=== PATIENT | female | born 1980 | race Caucasian/White ===

== ENCOUNTER 2024-06-16 15:30 | Outpatient (REF) | payer OTHER, SELFPAY ==
[2024-06-16 17:07] LABS: Alanine Aminotransferase 18 U/L (0-31); Albumin Level 4.1 g/dL (3.5-5.0); Alkaline Phosphatase 73 U/L (39-117); Anion Gap 8 (12-20); Aspartate Amino Transferase 19 U/L (5-31); Bilirubin Total 0.3 mg/dL (0.0-1.0); Blood Urea Nitrogen 18 mg/dL (9-16); Calcium 8.7 mg/dL (8.4-10.2); Carbon Dioxide 23 mmol/L (22-29); Chloride 108 mmol/L (96-108); Cholesterol 209 mg/dL (<200); Estimated Glomerular Filt Rate > 60; Glucose Random 94 mg/dL (60-115); HDL Cholesterol 46 mg/dL (>40); LDL Cholesterol Calculated 144 mg/dL (<100); Potassium 4.3 mmol/L (3.3-5.1); Sodium 135 mmol/L (135-145); Total Protein 7.6 g/dL (6.5-8.0); Triglycerides 95 mg/dL (<150)
--- OUTSIDE RECORDS SUMMARY | 2024-06-16 17:26 | XMS_ITS | Encounter Summary ---
Author Organization [employer] Address [address] [facility] 7t [place] [address] Care Team Providers Care Manager Credit Name Role Phone [facility] Primary Care Provider [phone] Encounter Details Date Type Department Care Team (Latest Contact Info) Description 06/16/2024 Travel Social History Tobacco Use Types Packs/Day Years Used Date Smoking Tobacco: Never Passive Smoke Exposure: Never Smokeless Tobacco: Never Alcohol Use Standard Drinks/Week Comments Never 0 (1 standard drink = 0.6 oz pur e alcohol) Depression Answer Date Recorded Patient Health Questionnaire-9 Score 6 06/16/2024 Patient Health Questionnaire-9 Score 6 06/16/2024 Last PHQ-9: Questionnaire Data Not on file 0 06/16/2024 Housing Stability Answer Date Recorded What is your housing situation today? I have kathy blanco 06/16/[address] you li ve. Do you have problems with any of the following? None of the above 06/16/2024 Food Insecurity Answer Date Recorded Within the past 12 months, y ou worried that your food would run out before you got money to buy more: Never True 06/16/2024 Within the past 12 months,th e food you bought just didn't last and you didn't have enough money to get more: Never True Transportation Answer Date Recorded In the past 12 months, has l ack of transportation kept you from medical appts, meetings, work or from getting things needed for daily living? No 06/16/2024 Utilities Answer Date Recorded In the past 12 months, has t he electric, gas, oil or water company threatened to shut off services in your home? No 06/16/2024 Depression Answer Date Recorded Patient Health Questionnaire-2 Score 1 06/16/2024 Comments Unknown Sex and Gender Information Value Date Recorded Sex Assigned at Female 03/18/2022 10:14 AM EDT Legal Sex Female 10:14 AM EDT Gender Identity Female 03/18/2022 10:14 AM EDT Sexual Orientation Straight 03/18/2022 10 :14 AM EDT documented as of this encounter Plan of Treatment Upcoming Encounters Date Type Department Care Team (Late st Contact Info) Description 08/30/2024 9:15 AM EDT Procedure Visit [facility] [address] [place] [address] Sharona Vieira FNP [address] [place] [address] documented as of this encounter Visit Diagnoses Not on filedocumented in this encounter Additional Health Concerns Assessment Noted Time PHQ-9 Depression Total Score: 6 06/16/19 25 2:19 PM EST documented as of this encounter Care Teams Manager Credit Relationship Specialty Start Date End Date Sharona Vieira FNP [address] [place] [address] PCP - General Family Medicine 01/14/22 documented as of this encounter
--- OUTSIDE RECORDS SUMMARY | 2024-06-16 17:26 | XMS_ITS | Encounter Summary ---
Author Organization [employer] Address [address] [facility] 7t [place] [address] Care Team Providers Care Ip Litigation Paralegal Name Role Phone [facility] [employer] AND FROST INSULATOR HELPER Primary Care Provider [phone] Reason for Visit * Reason Comments Med Refill Encounter Details Date Type Department Care Team ([facility] st Contact Info) Description 02/21/2023 Refill [facility] [address] [place], [place] [phone] Giulia Chavez MD [address] [place], [place] [phone] Vitiligo Social History Tobacco Use Types Packs/Day Years Used Date Smoking Tobacco: Never Smokeless Tobacco: Never Alcohol Use Standard Drinks/Week Comments Never 0 (1 standard drink = 0.6 oz pur e alcohol) Depression Answer Date Recorded Patient Health Questionnaire-9 Score 0 12/03/2022 Housing Stability Answer Date Recorded What is your housing situation today? I have kathy blanco 02/25/[address] you li ve. Do you have problems with any of the following? None of the above 02/25/2023 Food Insecurity Answer Date Recorded Within the past 12 months, y ou worried that your food would run out before you got money to buy more: Never True 02/25/2023 Within the past 12 months,th e food you bought just didn't last and you didn't have enough money to get more: Never True 02/2023 Transportation Answer Date Recorded In the past 12 months, has l ack of transportation kept you from medical appts, meetings, work or from getting things needed for daily living? No 02/25/2023 Utilities Answer Date Recorded In the past 12 months, has t he electric, gas, oil or water company threatened to shut off services in your home? No 02/25/2023 Depression Answer Date Recorded Patient Health Questionnaire-2 Score 0 12/03/2022 Comments Unknown Sex and Gender Information Value [...] Description 08/30/2024 9:15 AM EDT Procedure Visit [facility] [address] [place] [address] Sharona Vieira FNP [address] [place] [address] documented as of this encounter Visit Diagnoses Diagnosis Vitiligo documented in this encounter Additional Health Concerns Assessment Noted Time PHQ-9 Depression Total Score: 0 12/04/19 23 2:44 PM EDT documented as of this encounter Care Teams Ip Litigation Paralegal Relationship Specialty Start Date End Date Sharona Vieira FNP [address] [place] [address] PCP - General Family Medicine 01/14/22 documented as of this encounter
--- OUTSIDE RECORDS SUMMARY | 2024-06-16 17:26 | XMS_ITS | Encounter Summary ---
Author Organization [employer] Address [address] [facility] 7t [place] [address] Care Team Providers Care Experimental Electronics Developer Name Role Phone [facility] Primary Care Provider [phone] Reason for Visit * Reason Comments Med Refill Encounter Details Date Type Department Care Team ([facility] st Contact Info) Description 08/01/2023 Refill [facility] [address] [place], [place] [phone] [facility] [address] [place] [address] Menstrual cramps Social History Tobacco Use Types Packs/Day Years Used Date Smoking Tobacco: Never Smokeless Tobacco: Never Alcohol Use Standard Drinks/Week Comments Never 0 (1 standard drink = 0.6 oz pur e alcohol) Depression Answer Date Recorded Patient Health Questionnaire-9 Score 0 12/03/2022 Housing Stability Answer Date Recorded What is your housing situation today? I have kathy blanco 03/05/[address] you li ve. Do you have problems with any of the following? None of the above 03/05/2023 Food Insecurity Answer Date Recorded Within the past 12 months, y ou worried that your food would run out before you got money to buy more: Never True 03/05/2023 Within the past 12 months,th e food you bought just didn't last and you didn't have enough money to get more: Never True Transportation Answer Date Recorded In the past 12 months, has l ack of transportation kept you from medical appts, meetings, work or from getting things needed for daily living? No 03/05/2023 Utilities Answer Date Recorded In the past 12 months, has t he electric, gas, oil or water company threatened to shut off services in your home? No 03/05/2023 Depression Answer Date Recorded Patient Health Questionnaire-2 [...] Description 08/30/2024 9:15 AM EDT Procedure Visit [facility] [address] [place] [address] Sharona Vieira FNP [address] [place] [address] documented as of this encounter Visit Diagnoses Diagnosis Menstrual cramps Dysmenorrhea documented in this encounter Additional Health Concerns Assessment Noted Time PHQ-9 Depression Total Score: 0 12/04/19 23 2:44 PM EDT documented as of this encounter Care Teams Experimental Electronics Developer Relationship Specialty Start Date End Date Sharona Vieira FNP [address] [place] [address] PCP - General Family Medicine 01/14/22 documented as of this encounter
--- OUTSIDE RECORDS SUMMARY | 2024-06-16 17:26 | XMS_ITS | Clinical Summary ---
Author Organization [facility] Address [address] [place] [address] Care Team Providers Care Rehabilitation Liaison Name Role Phone Unavailable Primary Care Provider Unavailabl e Social History Tobacco Use Types Packs/Day Years Used Date Smoking Tobacco: Never Assessed Sex and Gender Information Value Date Recorded Sex Assigned at Not on file Gender Identity Not on file Sexual Orientation Not on file Plan of Treatment Health Maintenance Due Date Last Done Comments Breast Cancer Screening 1982 DTaP,Tdap,and Td Vaccines (1 - Tdap) 2001 Hepatitis B Vaccines (1 of 3 - 19+ 3-dose series) 2001 Cervical Cancer Screening: P ap Smear 11/29/2003 Depression Screening 04/16/2022 HIV Screening 04/16/2022 Hepatitis C Screening 04/16/2022 Social Influencers of Health Screening 04/16/2022 COVID-19 Vaccine (2023-2 5 season) 2024 Influenza Vaccine (#1) 2024 HIB Vaccines Aged Out No longer eligi ble based on patient's age to complete this topic HPV Vaccines Aged Out No longer eligi ble based on patient's age to complete this topic Hepatitis A Vaccines Aged Out No long er eligible based on patient's age to complete this topic IPV Vaccines Aged Out No longer eligi ble based on patient's age to complete this topic MMR Vaccines Aged Out No longer eligi ble based on patient's age to complete this topic Meningococcal ACWY Vaccine Aged Out N o longer eligible based on patient's age to complete this topic Pneumococcal Vaccine: Pediat rics (0 to 5 Years) and At-Risk Patients (6 to 64 Years) Aged Out No longer eligible b ased on patient's age to complete this topic RSV Immunization Patients Un nichole 20 months Aged Out No longer eligible b ased on patient's age to complete this topic Varicella Vaccines Aged Out No longer eligible based on patient's age to complete this topic
--- OUTSIDE RECORDS SUMMARY | 2024-06-16 17:26 | XMS_ITS | Encounter Summary ---
Author Organization [employer] Address [address] [facility] 7t [place] [address] Care Team Providers Care Booster Operator Name Role Phone [facility] Primary Care Provider [phone] Reason for Visit * Reason Comments Med Refill Encounter Details Date Type Department Care Team ([facility] st Contact Info) Description 05/23/[address] [facility] [address] [place], [place] [phone] [facility] [address] [place] [address] Vitiligo Social History Tobacco Use Types Packs/Day [...] Description 08/30/2024 9:15 AM EDT Procedure Visit [facility] [address] [place] [address] Sharona Vieira FNP [address] [place] [address] documented as of this encounter Visit Diagnoses Diagnosis Vitiligo documented in this encounter Additional Health Concerns Assessment Noted Time PHQ-9 Depression Total Score: 0 12/04/19 23 2:44 PM EDT documented as of this encounter Care Teams Booster Operator Relationship Specialty Start Date End Date Sharona Vieira FNP [address] [place] [address] PCP - General Family Medicine 01/14/22 documented as of this encounter
--- OUTSIDE RECORDS SUMMARY | 2024-06-16 17:26 | XMS_ITS | Encounter Summary ---
Author Organization [employer] Address [address] [facility] 7t [place] [address] Care Team Providers Care Fire Extinguisher Repairer Name Role Phone [facility] Primary Care Provider [phone] Encounter Details Date Type Department Care Team ([facility] st Contact Info) Description 06/16/2024 2:00 PM EST Office Visit [facility] [address] [place], [place] [phone] [facility] [address] [place] [address] Mild persistent asthma without complication (Primary Dx); Depressive disorder; Goiter; Vitiligo; Routine screening for STI (sexually transmitted infection) Social History Tobacco Use Types Packs/Day Years Used Date Smoking Tobacco: Never Passive Smoke Exposure: Never Smokeless Tobacco: Never Tobacco Cessation:Counseling Given: Not Answered Alcohol Use Standard Drinks/Week Comments Never 0 [...] AM EDT documented as of this encounter Last Filed Vital Signs Vital Sign Reading Time Taken Comments Blood Pressure 130/84 06/16/2024 2:54 PM EST Pulse 74 06/16/2024 2:18 PM EST Temperature 35.9 ??C (96.6 ??F) 06/16/2024 2:18 PM ES T Respiratory Rate 20 06/16/2024 2:18 PM EST Oxygen Saturation - - Inhaled Oxygen Concentration - - Weight 76.5 kg (168 lb 9.6 oz) 06/16/2024 2:18 P M EST Height 152.4 cm (5') 06/16/2024 2:18 PM EST Body Mass Index 32.93 06/16/2024 2:18 PM EST documented in this encounter Plan of Treatment Upcoming Encounters Date Type Department Care Team (Late st Contact Info) Description 08/30/2024 9:15 AM EDT Procedure Visit [facility] [address] [place] [address] Sharona Vieira FNP [address] [place] [address] Scheduled Orders Name Type Priority Associated Diagnoses Orde r Schedule Hepatitis A,B,C Profile Lab Routine Routine screening for STI (sexually transmitted infection) Expected: 06/16/2024, Expires: 06/16/2025 HIV-1/2 Antigen and Antibodies, Fourth Generation, with Reflexes Lab Routine Routine screening for STI (sexually transmitted infection) Expected: 06/16/2024 (Approximate), Expires: 06/16/2025 Syphilis Screen Lab Routine Routine screening for STI (sexually transmitted infection) Expected: 06/16/2024, Expires: 06/16/2025 documented as of this encounter Procedures Procedure Name Priority Date/Time Associated Diagnosis Comments TSH W/REFLEX TO FT4 Routine 06/16/2024 3 :34 PM EST Goiter LIPID PANEL, STANDARD Routine 06/16/2024 3:34 PM EST Goiter COMPREHENSIVE METABOLIC PANEL Routine 06/16/2024 3:34 PM EST Goiter documented in this encounter Results * (ABNORMAL) Comprehensive Metabolic Panel (06/16/2024 3:34 PM EST) Sodium 135 135 - 145 mmol/L [facility] Potassium 4.3 3.3 - 5.1 mmol/L [facility] Chloride 108 96 - 108 mmol/L [facility] Carbon Dioxide 23 22 - 29 mmol/L [facility] Anion Gap 8(L) 12 - 20 [facility] Urea Nitrogen (BUN) 18(H) 9 - 16 mg/dL [facility] Creatinine, Serum 0.63 0.5 - 1.4 mg/dL [facility] Estimated Glomerular Filt Rate >60 [facility] Comment:Chronic Kidney Disea se: Estimated GFR < 60 mL/min/1.59m4Bbmhqe Kidney Disease: Estimated GFR < 15 mL/min/1.73m2 Glucose 94 60 - 115 mg/dL [facility] Calcium 8.7 8.4 - 10.2 mg/dL [facility] Bilirubin, Total 0.3 0.0 - 1.0 mg/dL [facility] Aspartate Amino Transferase 19 5 - 31 U/L [facility] Alanine Aminotransferase 18 0 - 31 U/L [facility] Total Protein 7.6 6.5 - 8.0 g/dL [facility] Albumin Level 4.1 3.5 - 5.0 g/dL [facility] Alkaline Phosphatase 73 39 - 117 U/L [facility] Blood Venous blood specimen / Unknown 06/16/2024 3:34 PM EST 06/16/2024 4:22 PM EST [facility] LAB BLOOD ORDERABLES Final Re sult Performing Organization Address [facility] Co de Phone Number [facility] [address] [place] [phone] * (ABNORMAL) Lipid Panel, Standard (06/16/2024 3:34 PM EST) Triglycerides 95 <150 mg/dL [facility] Comment:Desirable Triglyceri de: less than 150 mg/dLBorderline High Triglyceride 150-199 mg/dLHigh Triglyceride: 200-499 mg/dLVery High Triglyceride: greater than or equal to 5OO mg/dL Cholesterol 209(H) <200 mg/dL [facility] Comment:Desirable Cholestero l: less than 200 mg/dLBorderline High Cholesterol: 200-239 mg/dLHigh Cholesterol: greater than 239 mg/dL LDL Cholesterol Calculated 144(H) <100 mg/dL [facility] Comment:Desirable LDL: less than 100 mg/dLNear Optimal/Above Optimal LDL: 110- 129 mg/dLBorderline High LDL: 130-159 mg/dLHigh LDL: 160-189 mg/dLVery High LDL: greater than or equal to 190 mg/dL HDL Cholesterol 46 >40 mg/dL [facility] Comment:Desirable HDL: great er than 40 mg/dL Note: This HDL assay may give artificially low results in patients with liver disease. Blood Venous blood specimen / Unknown 06/16/2024 3:34 PM EST 06/16/2024 4:22 PM EST [facility] LAB BLOOD ORDERABLES Final Re sult Performing Organization Address [facility]/ZIP Co de Phone Number [facility] [address] [place] [address] [phone] * TSH W/Reflex to FT4 (06/16/2024 3:34 PM EST) TSH reflex Free T4 3.10 0.32 - 4.0 uIU/mL [facility] Blood Venous blood specimen / Unknown 06/16/2024 3:34 PM EST 06/16/2024 4:22 PM EST [facility] LAB BLOOD ORDERABLES Final Re sult [facility] [address] [place] [address] [phone] documented in this encounter Visit Diagnoses Diagnosis Mild persistent asthma without complication- Primary Depressive disorder Depressive disorder, not elsewhere classified Goiter Goiter, unspecified Vitiligo Routine screening for STI (sexually transmitted infection) Screening examination for venereal disease documented in this encounter Additional Health Concerns Assessment Noted Time PHQ-9 Depression Total Score: 6 06/16/19 25 2:19 PM EST documented as of this encounter Care Teams Fire Extinguisher Repairer Relationship Specialty Start Date End Date [facility] [address] [place] [address] PCP - General Family Medicine 01/14/22 documented as of this encounter
--- OUTSIDE RECORDS SUMMARY | 2024-06-16 17:26 | XMS_ITS | Encounter Summary ---
Author Organization [employer] Address [address] [facility] 7t [place] [address] Care Team Providers Care Optics Test Technician Name Role Phone [facility] Primary Care Provider [phone] Reason for Visit * Reason Comments Pre-visit Planning (Unable to reach for PVP screening, LVM) Encounter Details Date Type Department Care Team ([facility] st Contact Info) Description 06/04/2024 Patient Outreach [facility] [address] [place] [address] [facility] [address] [place] [address] Pre-visit Planning ((Unable to reach for PVP screening, LVM)) Social History Tobacco Use Types Packs/Day Years [...] AM EDT documented as of this encounter Progress Notes * Rocio Yanez - 06/04/2024 9:40 AM EST LUCINDA Chan. Placed outbound call to patient to complete pre-visit planning. No answer at this time. Patient name and were not confirmed. CC left voicemail requesting return call. Direct contact information provided. documented in this encounter Plan of Treatment Upcoming Encounters Date Type Department Care Team (Late st Contact Info) Description 08/30/2024 9:15 AM EDT Procedure Visit [facility] [address] [place] [address] Sharona Vieira FNP [address] [place] [address] documented as of this encounter Visit Diagnoses Not on filedocumented in this encounter Additional Health Concerns Assessment Noted Time PHQ-9 Depression Total Score: 0 12/04/19 23 2:44 PM EDT documented as of this encounter Care Teams Optics Test Technician Relationship Specialty Start Date End Date Sharona Vieira FNP [address] [place] [address] PCP - General Family Medicine 01/14/22 documented as of this encounter
--- OUTSIDE RECORDS SUMMARY | 2024-06-16 17:26 | XMS_ITS | Encounter Summary ---
Author Organization [employer] Address [address] [facility] [address] [place] [address] Care Team Providers Care Data Analytics Analyst Name Role Phone Sharona Vieira Primary Care Provider [phone] Reason for Visit * Reason Comments Med Refill Encounter Details Date Type Department Care Team (Late st Contact Info) Description 10/01/[address] [facility] [address] [place] [address] Joelle Collins FNP [address] [place] [address] Social History Tobacco Use Types Packs/Day Years Used Date Smoking Tobacco: Never Assessed Comments Unknown Sex and Gender Information Value Date Recorded Sex Assigned at Female 03/18/2022 10:14 AM EDT Legal Sex Female 10:14 AM EDT Gender Identity Female 03/18/2022 10:14 AM EDT Sexual Orientation Straight 03/18/2022 10 :14 AM EDT documented as of this encounter Plan of Treatment Upcoming Encounters Date Type Department Care Team (Late Contact Info) Description 08/30/2024 9:15 AM EDT Procedure Visit [facility] [address] [place] [address] Sharona Vieira FNP [address] [place] [address] documented as of this encounter Visit Diagnoses Not on filedocumented in this encounter Care Teams Data Analytics Analyst Relationship Specialty Start Date End Date Sharona Vieira FNP [address] [place] [address] PCP - General Family Medicine 01/14/22 documented as of this encounter
--- OUTSIDE RECORDS SUMMARY | 2024-06-16 17:26 | XMS_ITS | Encounter Summary ---
Author Organization [facility] Address [address] [place] [address] [address] [place] [address] Care Team Providers Care Retail Field Merchandiser Name Role Phone Sharona Vieira [facility] Primary Care Provider [phone] Encounter Details Date Type Department Care Team (Late st Contact Info) Description 06/04/2022 Orders Only [facility] [address] [place] [address] Lashae Vargas LPN Social History Tobacco Use Types Packs/Day Years [...] 9:15 AM EDT Procedure Visit [facility] [address] [place] [address] Sharona Vieira [facility] [address] [place] [address] documented as of this encounter Visit Diagnoses Not on filedocumented in this encounter Care Teams Retail Field Merchandiser Relationship Specialty Start Date End Date Sharona Vieira FNP [address] [place] [address] PCP - General Family Medicine 01/14/22 documented as of this encounter
--- OUTSIDE RECORDS SUMMARY | 2024-06-16 17:26 | XMS_ITS | Clinical Summary ---
Author Organization [employer] Address [address] [facility] [address] [place] [address] Care Team Providers Care Roller Leveler Name Role Phone Sharona Vieira [facility] Primary Care Provider [phone] Allergies Active Allergy Reactions Criticality Noted Date Comments Doxycycline 09/20/2013 Shellfish-Derived Products 7 Medications albuterol (Ventolin HFA) 108 (90 Base) MCG/ACT inhalerIndicati ons:Mild persistent asthma without complication INHALE 2 PUFFS BY MOUTH EVERY 4 HOURS 18 g 3 03/24/20 24 Active cetirizine (ZyrTEC) 10 MG tabletIndicatio ns:Mild persistent asthma without complication TAKE 1 TABLET BY MOUTH EVERY DAY NEEDED 90 tablet 04/21/20 24 Active traZODone (Desyrel) 50 MG tablet TAKE 1 TABLET BY MOUTH EVERYDAY AT BEDTIME 90 tablet 04/21/20 24 Active hydrocortisone 1 % creamIndication s:Rash APPLY TO AFFECTED AREA TWICE A DAY 28 g 1 05/13/20 24 Active ibuprofen 400 MG tabletIndicatio ns:Menstrual cramps TAKE 1 TABLET BY MOUTH EVERY 8 HOURS NEEDED FOR PAIN 60 tablet 05/13/20 24 Active triamcinolone (Kenalog) 0.1 % creamIndication s:Vitiligo USE DIRECTED. MIX TUBES WITH 16OZ JAR OF CERAVE AND APPLY 1-2 TIMES DAILY FROM NECK DOWN 60 g 1 05/24/19 25 Active budesonide-form oterol (Symbicort) 80-4.5 MCG/ACT inhalerIndicati ons:Mild persistent asthma without complication Inhale 2 puffs twie daily. Rinse mouth with water after use to reduce aftertaste and incidence of candidiasis. Do not swallow. 1 each 06/16/19 25 Active FLUoxetine (PROzac) 40 MG capsuleIndicati ons:Depressive disorder TAKE 1 CAPSULE BY MOUTH EVERY DAY 30 capsule 11 06/16/19 25 Active Flovent HFA 110 MCG/ACT inhaler INHALE 2 PUFFS TWICE A DAY FOR 90 DAYS. 10/26/19 23 025 Discontinued triamcinolone (Kenalog) 0.1 % creamIndication s:Vitiligo USE DIRECTED. MIX TUBES WITH 16OZ JAR OF CERAVE AND APPLY 1-2 TIMES DAILY FROM NECK DOWN 60 g 1 03/17/20 24 025 Discontinued FLUoxetine (PROzac) 20 MG capsule TAKE 1 CAPSULE BY MOUTH EVERY DAY 90 capsule 04/21/20 025 Discontinued(R eorder (will not trigger notification to Pharmacy)) Active Problems Problem Noted Date Diagnosed Date Vitiligo 09/20/2013 Depressive disorder 09/20/2013 Asthma 09/20/2013 Encounters Date Type Department Care Team Description 06/16/2024 2:00 PM EST Office Visit [facility] [address] [place] [address] Sharona Vieira FNP Mild persistent asthma without complication (Primary Dx); Depressive disorder; Goiter; Vitiligo; Routine screening for STI (sexually transmitted infection) 06/16/2024 Travel 06/04/2024 Patient Outreach [facility] [address] [place] [address] Sharona Vieira FNP Pre-visit Planning ((Unable to reach for PVP screening, LVM)) 05/23/2024 Refill [facility] [address] [place] [address] Sharona Vieira FNP Vitiligo 05/11/2024 Refill [facility] [address] [place] [address] Sharona Vieira FNP Rash; Menstrual cramps 04/21/2024 Refill [facility] [address] [place] [address] Sharona Vieira FNP Mild persistent asthma without complication 03/24/2024 Refill [facility] [address] [place] [address] Lissette Valdez MD Mild persistent asthma without complication 03/17/2024 Refill [facility] [address] [place] [address] Isha, Sharona, [employer] Vitiligo from Last 3 Months Immunizations Name Administration Dates Next Due Hep B, Adolescent or Pediatric 08/06/2000,1999,07/06/1998 Influenza Injectable Quadriv alant Preservative Free IIV4 MDCK 02/17/2019 Influenza injectable quadriv alent preservative free 02/12/2022,02/23/2020,03/28/2018,2016,08/01/2016,06/20/2015,05/19/2015 Influenza, IIV3, injectable 05/17/2013 MMR 01/23/1995,03/22/1985 TD (adult), 2 Lf tetanus tox oid, preservative free, adsorbed 01/23/2005 Tdap 06/25/2021,07/29/2015,09/20/2013 Social History Tobacco Use Types Packs/Day Years [...] Orientation Straight 03/18/2022 10 :14 AM EDT Last Filed Vital Signs Vital Sign Reading Time Taken Comments Blood Pressure 130/84 06/16/2024 2:54 PM EST Pulse 74 06/16/2024 2:18 PM EST Temperature 35.9 ??C (96.6 ??F) 06/16/2024 2:18 PM ES T Respiratory Rate 20 06/16/2024 2:18 PM EST Oxygen Saturation 97% 12/03/2022 2:42 PM EDT Inhaled Oxygen Concentration - - Weight 76.5 kg (168 lb 9.6 oz) 06/16/2024 2:18 P M EST Height 152.4 cm (5') 06/16/2024 2:18 PM EST Body Mass Index 32.93 06/16/2024 2:18 PM EST Plan of Treatment Upcoming Encounters Date Type Department Care Team (Late st Contact Info) Description 08/30/2024 9:15 AM EDT Procedure Visit [facility] [address] [place] [address] [facility] [address] [place] [address] Health Maintenance Due Date Last Done Comments HIV Screening 1982 Family Planning (PISQ) 1997 Hepatitis C Screening 2000 Pneumococcal Vaccine: Pediatrics (0 to 5 Years) and At-Risk Patients (6 to 49) Years) (1 of 2 - PCV) 2001 Pap Smear 11/29/2003 Cervical Cancer Screening 2012 HPV/Cotest 2012 Mammogram 2022 SDOH Screening 12/04/2023 12/03/2022 COVID-19 Vaccine ( season) 2024 03/01/2022, 07/25/2021, 12/04/2020, Additional history exists Alcohol/Substance Use Screening 06/16/2025 06/16/2024 Depression Screening 06/16/2025 06/16/2024, 06/16/19 Tobacco Screening 06/16/2025 06/16/2024 DTaP/Tdap/Td Vaccines (4 - Td or Tdap) 06/25/2031 06/25/2021, 07/29/2015, 09/20/2013, Additional history exists Zoster Vaccines (1 of 2) 2032 RSV Patients and Patients Aged 60 years or older (1 - 1-dose 75+ series) 2057 Hepatitis B Vaccines Completed 08/06/2000, 10/08/1999, 07/06/1998 Influenza Vaccine Completed 04/20/2024, , 02/12/2022, Additional history exists HIB Vaccines Aged Out No longer eligi [...] patient's age to complete this topic Meningococcal Vaccine Aged Out No raine lily eligible based on patient's age to complete this topic RSV under 20 months Aged Out No longe r eligible based on patient's age to complete this topic Rotavirus Vaccines Aged Out No longer eligible based on patient's age to complete this topic Procedures Procedure Name Priority Date/Time Associated Diagnosis Comments COMPREHENSIVE METABOLIC PANEL Routine 06/16/2024 3:34 PM EST Goiter LIPID PANEL, STANDARD Routine 06/16/2024 3:34 PM EST Goiter TSH W/REFLEX TO FT4 Routine 06/16/2024 3 :34 PM EST Goiter from Last 3 Months Results * TSH W/Reflex to FT4 (06/16/2024 3:34 PM EST) TSH reflex Free T4 3.10 0.32 - 4.0 uIU/mL [facility] Blood Venous blood specimen / Unknown 06/16/2024 3:34 PM EST 06/16/2024 4:22 PM EST [facility] LAB BLOOD ORDERABLES Final Re sult Performing Organization Address [facility] de Phone Number [facility] [address] [place] [address] [phone] * (ABNORMAL) Lipid Panel, Standard (06/16/2024 3:34 PM EST) Pathologist [facility] Triglycerides 95 <150 mg/dL [facility] Comment:Desirable Triglyceri de: less than 150 mg/dLBorderline High Triglyceride 150-199 mg/dLHigh Triglyceride: 200-499 mg/dLVery High Triglyceride: greater than or equal to 5OO mg/dL Cholesterol 209(H) <200 mg/dL [facility] Comment:Desirable Cholestero l: less than 200 mg/dLBorderline High Cholesterol: 200-239 mg/dLHigh Cholesterol: greater than 239 mg/dL LDL Cholesterol Calculated 144(H) <100 mg/dL [facility] Comment:Desirable LDL: less than 100 mg/dLNear Optimal/Above Optimal LDL: 110- 129 mg/dLBorderline High LDL: 130-159 mg/dLHigh LDL: 160-189 mg/dLVery High LDL: greater than or equal to 190 mg/dL HDL Cholesterol 46 >40 mg/dL [facility] Comment:Desirable HDL: great er than 40 mg/dL Note: This HDL assay may give artificially low results in patients with liver disease. Blood Venous blood specimen / Unknown 06/16/2024 3:34 PM EST 06/16/2024 4:22 PM EST [facility] LAB BLOOD ORDERABLES Final Re sult Performing Organization Address [facility] Co de Phone Number [facility] [address] [place] [phone] * (ABNORMAL) Comprehensive Metabolic Panel (06/16/2024 3:34 PM EST) Sodium 135 135 - 145 mmol/L [facility] Potassium 4.3 3.3 - 5.1 mmol/L [facility] Chloride 108 96 - 108 mmol/L [facility] Carbon Dioxide 23 22 - 29 mmol/L [facility] Anion Gap 8(L) 12 - 20 [facility] Urea Nitrogen (BUN) 18(H) 9 - 16 mg/dL [facility] Creatinine, Serum 0.63 0.5 - 1.4 mg/dL [facility] Estimated Glomerular Filt Rate >60 [facility] Comment:Chronic Kidney Disea se: Estimated GFR < 60 mL/min/[id number] Kidney Disease: Estimated GFR < 15 mL/min/1.73m2 Glucose 94 60 - 115 mg/dL [facility] Calcium 8.7 8.4 - 10.2 mg/dL [facility] Bilirubin, Total 0.3 0.0 - 1.0 mg/dL [facility] Aspartate Amino Transferase 19 5 - 31 U/L [facility] Alanine Aminotransferase 18 0 - 31 U/L [facility] Total Protein 7.6 6.5 - 8.0 g/dL [facility] Albumin Level 4.1 3.5 - 5.0 g/dL [facility] Alkaline Phosphatase 73 39 - 117 U/L [facility] Blood Venous blood specimen / Unknown 06/16/2024 3:34 PM EST 06/16/2024 4:22 PM EST [facility] LAB BLOOD ORDERABLES Final Re sult [facility] [address] [place] [address] [phone] from Last 3 Months Insurance [facility] Care Teams Roller Leveler Relationship Specialty Start Date End Date LaconSharona [facility] [address] [place] [phone] PCP - General Family Medicine 01/14/22
[2024-06-17 05:26] LABS: Syphilis Screen Nonreactive (Nonreactive)
[2024-06-17 06:08] LABS: HBS Num1 46.67 mIU/mL (0-7.99); HBsAGNum1 0.32 S/CO (0.00-0.99); HIV AB/AG Nonreactive (Nonreactive); HIV Num 1 0.04 S/CO (0.00-0.99); Hepatitis A Antibody IgM 0.17 Index (0-0.79); Hepatitis B Core Antibody Nonreactive (Nonreactive); Hepatitis B Surface Antigen Negative (Negative); ~HepC Num1 0.09 S/CO (0.00-0.79); ~Hepatitis A Antibody IgM Nonreactive (Nonreactive); ~Hepatitis B Surface Antibody REACTIVE (Nonreactive); ~Hepatitis C Antibody Nonreactive (Nonreactive)
== END 2024-06-16 15:31 | disposition home or self-care (01) ==
LOC: HO.HHCL 15:30
PROVIDERS: Visit Provider Registered Nurse
DX: Z11.4 Encounter for screening for human immunodeficiency virus [HIV] (principal); Z13.6 Encounter for screening for cardiovascular disorders; E04.9 Nontoxic goiter, unspecified; Z20.2 Contact with and (suspected) exposure to infections with a predominantly sexual mode of transmission
CPT/HCPCS: 36415; 80053; 80061; 84443; 86704; 86706; 86709; 86780; 86803; 87340; 87389